=== PATIENT | male | born 2005 | race Caucasian/White ===

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

== ENCOUNTER 2025-02-26 10:57 | Outpatient (AMB) | payer OTHER, SELFPAY ==
--- NOTE | 2025-02-26 11:00 | A.OFFPC_ITS ---
Vital Signs 02/26/25 11:04 Height 5 ft 5.35 in Weight 149 lb BMI 24.5 BP 122/78 Blood Pressure Location Lt brachial Position Sitting Respiration 16 Pulse 66 Pulse Source Pulse Oximeter Temp 98.3 F Temp Source Oral Pulse Oximetry (%) 98 Oxygen Delivery Method Room Air Intake Visit Reasons: establish care J2Ee Engineer Required: No Accompanied by: Self / Same As Patient Allergies No Known Allergies Allergy (Verified 02/26/25 11:17) Medication List - Last Reconciled 02/26/25 by MUNIR Jorge No Known Home Meds Tobacco use date assessed: 02/26/25 Dental Screening Dental Screen Date: 02/26/25 Did you have a dental visit in the last 12 months?: Yes Did you have a dental problem in the last 6 months where you did not have access to dental care?: No Was dental information given to patient?: Patient has dentist HPI establish care HPI Details Patient is a 19 year old male presenting to establish care Previous PCP:[facility] Last visit: Reports that he has not been to the doctor in the while Last PE: Reports that he does not remember the last time he had a physical Specialist: no OBGYN:n/a Past medical history: right hip fx about 6 years ago, in eight grade while playing football, Epistaxis-last time couple months ago. Anxiety and Depression, has not seen anyone for a year or two, but has been doing fairly well Medications: none Family HX:reports that he cannot remember anything Problem: Reports that he has this establishing care today and has no concerns [facility] Medical History (Updated 02/26/25 @ 11:48 by MUNIR Jorge) Anxiety Closed right hip fracture Depression Surgical History No pertinent past surgical history Family History Mother No problems noted. Family/Other Mental health disorder Social History Household Members: Family Housing: House Alcohol intake: never Patient Tobacco Use Status: Never used Tobacco e-Cigarette/Vaping Use: Never Used Second Hand Smoke Exposure: No service: No Current occupational status: employed Current occupational exposures/hazards: No Cognitive needs: No Hearing needs: No Vision needs: Yes Questionnaire PHQ-9 Over the last 2 weeks, how often have you been bothered by any of the following problems? 1. Little interest or pleasure in doing things: not at all 2. Feeling down, depressed, or hopeless: not at all 3. Trouble falling or staying asleep, or sleeping too much: more than half the days 4. Feeling tired or having little energy: not at all 5. Poor appetite or overeating: not at all 6. Feeling bad about yourself - or that you are a failure or have let yourself or your family down: more than half the days 7. Trouble concentrating on things, such as reading the newspaper or watching television: not at all 8. Moving or speaking so slowly that other people could have noticed. Or the opposite - being so fidgety or restless that you have been moving around a lot more than usual: not at all 9. Thoughts that you would be better off or of hurting yourself in some way: not at all Total score: 4 Depression Screening Interpretation: Negative Depression Screening Done: Yes 55659 - PHQ-9 Billing: Yes Source: Developed by Drs. Anthony Trinh, Adriana Gomez, Shahab Moreno and colleagues, with an educational denny from [employer]. Thrive Questionnaire Date Thrive assessed: 02/26/25 I am a: Patient What is your living situation today?: I have a steady place to live Within the past 12 months, did the food you bought not last and you didn't have the money to get more?: Never true Within the past 12 months, did you worry whether your food would run out before you got money to buy more?: Never true Do you have trouble paying for medicines?: No Do you have trouble getting transportation to medical appointments?: No Do you have trouble paying your heating and electricity bill?: No Do you have trouble taking care of your child, family member or friend?: No Do you have trouble with day-to-day activities such as bathing, preparing meals, shopping, managing finances, etc.?: No Are you currently unemployed and looking for a job?: No Are you interested in more education?: No Please select the resources that you would like help with: None Currently or been in a relationship where the following occur: No concerns reported THRIVE Score: 0 AUDIT C Alcohol Use Questionnaire (AUDIT-C) 1. How often do you have a drink containing alcohol?: Never Total Score: 0 TOMI-7 AMB Questionnaire TOMI-7 Date TOMI - 7 assessed: 02/26/25 Feeling nervous, anxious, or on edge: 0 = Not at all Not being able to stop or control worryin = Not at all Worrying too much about different things: 0 = Not at all Trouble relaxin = Not at all Being so restless that it is hard to sit still: 0 = Not at all Becoming easily annoyed or irritable: 0 = Not at all Feeling afraid as if something awful might happen: 0 = Not at all Total TOMI-7 score (0-4 normal; 5-9 mild; 10-14 moderate; 15-21 severe): 0 Source: Developed by Drs. Anthony Trinh, Adriana Gomez, Shahab Moreno and colleagues, with an educational denny from [employer]. TOMI-7 Assessment Billing TOMI-7 Assessment Tool: TOMI-7 Assessment 15447 Review of Systems Const Denies headache(s) Eyes Denies loss of vision ENT Denies vertigo, Denies dizziness, Denies headache(s), Reports epistaxis (Intermittent) and Denies sore throat Card Reports chest pain (comes and goes in seconds), Denies leg edema and Denies lightheadedness Resp Denies cough, Denies hemoptysis and Denies wheezing GI Denies abdominal pain, Denies melena, Denies constipation, Denies diarrhea and Denies vomiting Denies dysuria, Denies urinary frequency and Denies urinary urgency Musc Denies arthralgias, Denies joint swelling, Denies numbness and Denies tingling Neuro Denies Abnormal speech present, Denies behavioral changes, Denies vertigo, De nies dizziness, Denies headache(s), Denies loss of vision, Denies memory loss, Denies numbness and Denies tingling Psych Denies anxiety, Denies behavioral changes, Denies depression, Denies memory loss and Denies panic attacks Mateo/Lymph Denies easy bleeding and Denies easy bruising Aller/Immun Denies wheezing Physical exam (Primary Care) Vital Signs: Last Vital Signs Temp 98.3 F 02/26/25 11:04 Pulse 66 02/26/25 11:04 Resp 16 02/26/25 11:04 BP 122/78 02/26/25 11:04 Pulse Ox 98 02/26/25 11:04 Oxygen Delivery Method Room Air 02/26/25 11:04 BMI result Body Mass Index 24.5 Tobacco/Smoking Status: Tobacco use Status Tobacco use date assessed 02/26/25 02/26/25 11:09 Patient Tobacco Use Status Never used Tobacco 02/26/25 11:09 e-Cigarette/Vaping Use Never Used 02/26/25 11:09 PHQ-9: PHQ-9 Score PHQ-9: Total score 4 02/26/25 11:29 Depression Screening Interpretation: Negative Thrive Assessment: Date of Thrive Assessment Date Thrive assessed 02/26/25 02/26/25 11:03 Currently or been in a relationship where the following occur: No concerns reported Const General: healthy appearing, no acute distress, alert and awake Nutritional Appearance: well nourished Orientation/consciousness: oriented to person, oriented to place and oriented to time HENMT Ears: TM's normal bilaterally General nose exam: Normal nasal mucous membranes and turbinates present Eyes Conjunctivae: conjunctivae normal Sclerae: sclerae normal Pupils: Equal, round and reactive pupils present Neck Neck: Yes no lymphadenopathy and Yes no JVD Thyroid: Thyroid normal Carotids: no bruits Resp Effort & Inspection: normal respiratory effort and not tachypneic Auscultation: no crackles, no rales, no rhonchi and no wheezes Cardio Rate: regular rate Rhythm: regular rhythm Heart sounds: S1 normal heart sound present, S2 normal heart sound present, no murmurs and normal S1 and S2 GI Palpation (GI): Soft to palpation, nontender, no hepatomegaly and no splenomegaly Auscultation: normal bowel sounds Skin General skin exam: no rashes or lesions noted and dry skin Neuro General: oriented to person, oriented to place and oriented to time Cranial nerves: Yes Equal, round and reactive pupils present Speech: No Abnormal speech present Gait exam (Neuro): Normal gait present Motor exam (neuro): no tremor noted Extrem Right upper extremity: full ROM Left upper extremity: full ROM Right lower extremity: full ROM; no edema Left lower extremity: full ROM; no edema Psych Mental Status: mental status grossly normal Speech and movement: Normal speech and movement present Affect: normal affect Attitude: cooperative Thought process: Normal thought process present Coding Level of Care Code New Pt Level 3 (95323) Diagnoses Chest pain, unspecified type R07.9 Chest pain type: unspecified Depression, unspecified depression type F32.A Depression Type: unspecified Anxiety F41.9 Epistaxis R04.0 Additional Codes PHQ-9 - 89256 - PHQ-9 Billing: Yes ([id number]) TOMI-7 Assessment Billing - TOMI-7 Assessment Tool: TOMI-7 Assessment 44605 ([id number]) Time Spent (min) 37 Assessment & Plan Assessment & Plan (1) Chest pain, unspecified: Code(s): R07.9 - Chest pain, unspecified Category: Medical Qualifiers: Chest pain type: unspecified Qualified Code(s): R07.9 - Chest pain, unspecified Plan: Reports that the chest pains that comes and goes away in secs, primarily when he is at school and is stressed out Encouraged the patient to work on stress management (2) Depression: Comment: Follows with a therapist and psychiatrist through [facility] with Mary. 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 and love of animals; he is UTD with routine well care except for need of dental cleaning Code(s): F32.A - Depression, unspecified Category: Medical Qualifiers: Depression Type: unspecified Qualified Code(s): F32.A - Depression, unspecified Plan: The patient is currently not on any medication and he is not being followed by any therapist /psychiatrist Encouraged CBT, especially now that he is dealing with a lot of stress at school (3) Anxiety: Code(s): F41.9 - Anxiety disorder, unspecified Category: Medical Plan: Encouraged CBT Patient thinks that he has his anxiety controlled fairly without any treatments Denies any SI/HI We will continue to monitor (4) Epistaxis: Code(s): R04.0 - Epistaxis Category: Medical Plan: Recurrent, last episode was couple of months ago Encouraged the patient to use Afrin nose spray and to lean forward in use cold compress during the episodes Also, keep your nasal passages moisturized to help prevent these episodes Plan Patient to return in 7 weeks for physical and labs reviewed Orders: Orders Complete Blood Count Auto Diff 03/02/25 Z76.89 - Persons encountering health services in other specified circumstances, R07.9 - Chest pain, unspecified Comprehensive [place]. Panel Fast 03/02/25 Z76.89 - Persons encountering health services in other specified circumstances, R07.9 - Chest pain, unspecified Lipid Panel 03/02/25 Z76.89 - Persons encountering health services in other specified circumstances, R07.9 - Chest pain, unspecified CRP High Sensitivity 03/02/25 Z76.89 - Persons encountering health services in other specified circumstances, R07.9 - Chest pain, unspecified Erythrocyte Sedimentation Rate 03/02/25 Z76.89 - Persons encountering health services in other specified circumstances, R07.9 - Chest pain, unspecified TSH reflex Free T4 03/02/25 Z76.89 - Persons encountering health services in other specified circumstances, R07.9 - Chest pain, unspecified UA CC w/rflx Micro + Cult 03/02/25 Z76.89 - Persons encountering health services in other specified circumstances, R07.9 - Chest pain, unspecified
[2025-02-26 11:04] VITALS: BP 122/78; PULSE 66; RESP 16; TEMP 36.8; O2SAT 98; BMI 24.5
== END 2025-02-26 11:45 | disposition home or self-care (01) ==
DX: R07.9 Chest pain, unspecified (principal); F32.A Depression, unspecified; F41.9 Anxiety disorder, unspecified

== ENCOUNTER → 2025-02-26 10:57 | Outpatient (BNVA) | payer SELFPAY | DX: R07.9 Chest pain, unspecified (principal); F41.9 Anxiety disorder, unspecified; F32.A Depression, unspecified; R04.0 Epistaxis; Z76.89 Persons encountering health services in other specified circumstances | CPT/HCPCS: 96127 ==

== ENCOUNTER 2025-03-02 09:22 | Outpatient (REF) | payer OTHER, SELFPAY ==
[2025-03-02 09:37] LABS: MANUAL DIFF FLAG NO
[2025-03-02 10:06] LABS: Hematocrit 44.6 % (42.0-52.0); Hemoglobin 15.3 g/dl (14.0-18.0); Imm Gran Abs Auto 0.02 X10*3/uL (0.00-0.03); Imm Gran Pct Auto 0.4 % (0.0-0.4); Lymphocytes Absolute Auto 1.5 X10*3/uL (1.2-4.9); Mean Corpuscular HGB Conc 34.3 g/dl (31.0-36.0); Mean Corpuscular Hemoglobin 32.9 pg (27.0-33.0); Mean Corpuscular Volume 95.9 fL (80.0-98.0); NRBC Abs Auto 0.000 X10*3/uL (0.0-0.012); NRBC Pct Auto 0.0 /100WBC (0.0-0.2); Platelet Count 193 X10*3/uL (160-400); Red Blood Count 4.65 X10*6/uL (4.60-5.80); White Blood Count 5.5 X10*3/uL (4.8-10.8)
[2025-03-02 10:28] LABS: Appearance Urine Clear; Glucose Urine UA Negative (Negative); PH 6.5 (5.0-9.0); Specific Gravity - Urine 1.020 (1.005-1.025)
[2025-03-02 11:13] LABS: Alanine Aminotransferase 17 U/L (0-40); Albumin Level 4.8 g/dL (3.5-5.0); Alkaline Phosphatase 74 U/L (39-117); Anion Gap 9 (12-20); Aspartate Amino Transferase 21 U/L (5-37); Blood Urea Nitrogen 12 mg/dL (9-16); Calcium 9.4 mg/dL (8.4-10.2); Carbon Dioxide 28 mmol/L (22-29); Chloride 105 mmol/L (96-108); Cholesterol 173 mg/dL (<200); Estimated Glomerular Filt Rate > 60; HDL Cholesterol 65 mg/dL (>40); Potassium 4.4 mmol/L (3.3-5.1); Sodium 138 mmol/L (135-145); Total Protein 7.7 g/dL (6.5-8.0); Triglycerides 86 mg/dL (<150)
== END 2025-03-02 09:23 | disposition home or self-care (01) ==
LOC: HO.LAB 09:22
DX: R07.9 Chest pain, unspecified (principal); Z76.89 Persons encountering health services in other specified circumstances
CPT/HCPCS: 36415; 80053; 80061; 81003; 84443; 85025; 85652; 86141

== ENCOUNTER 2025-04-16 15:58 | Outpatient (AMB) | payer OTHER, SELFPAY ==
[2025-04-16 16:02] VITALS: BP 130/88; PULSE 51; RESP 18; TEMP 35.7; O2SAT 98; BMI 25.1
--- NOTE | 2025-04-16 16:02 | A.OFFPC_ITS ---
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 Accompanied by: Self / Same As Patient Allergies No Known Allergies Allergy (Verified 04/16/25 16:14) Medication List - Last Reconciled 04/16/25 by MUNIR Jorge No Known Home Meds Tobacco use date assessed: 04/16/25 Dental Screening Dental Screen Date: 04/16/25 Did you have a dental visit in the last 12 months?: Yes Did you have a dental problem in the last 6 months where you did not have access to dental care?: No Was dental information given to patient?: Patient has dentist HPI annual/lab review HPI Details The patient is 19 year old male presenting for annual physical Dentist: up to date Eye: up to date Snellen: Right: Left: Corrected vision: yes-glasses STI screening: Colonoscopy: Pap Smer: PHQ-9: Flu: not in awhile COVID: x2 Tdap: He not sure Diet: regular Exercise: works out every day [facility] Medical History Anxiety Closed right hip fracture Depression Surgical History No pertinent past surgical history Family History Mother No problems noted. Family/Other Mental health disorder Social History Household Members: Family Housing: House Alcohol intake: never Patient Tobacco Use Status: Never used Tobacco e-Cigarette/Vaping Use: Never Used Second Hand Smoke Exposure: No service: No Current occupational status: employed Current occupational exposures/hazards: No Cognitive needs: No Hearing needs: No Vision needs: Yes Questionnaire PHQ-9 Over the last 2 weeks, how often have you been bothered by any of the following problems? 1. Little interest or pleasure in doing things: not at all 2. Feeling down, depressed, or hopeless: not at all 3. Trouble falling or staying asleep, or sleeping too much: more than half the days 4. Feeling tired or having little energy: not at all 5. Poor appetite or overeating: not at all 6. Feeling bad about yourself - or that you are a failure or have let yourself or your family down: more than half the days 7. Trouble concentrating on things, such as reading the newspaper or watching television: not at all 8. Moving or speaking so slowly that other people could have noticed. Or the opposite - being so fidgety or restless that you have been moving around a lot more than usual: not at all 9. Thoughts that you would be better off or of hurting yourself in some way: not at all Total score: 4 Depression Screening Interpretation: Negative Depression Screening Done: Yes Source: Developed by Drs. Anthony Trinh, Adriana Gomez, Shahab Moreno and colleagues, with an educational denny from [employer]. Thrive Questionnaire Date Thrive assessed: 04/16/25 I am a: Patient What is your living situation today?: I have a steady place to live Within the past 12 months, did the food you bought not last and you didn't have the money to get more?: Never true Within the past 12 months, did you worry whether your food would run out before you got money to buy more?: Never true Do you have trouble paying for medicines?: No Do you have trouble getting transportation to medical appointments?: No Do you have trouble paying your heating and electricity bill?: No Do you have trouble taking care of your child, family member or friend?: No Do you have trouble with day-to-day activities such as bathing, preparing meals, shopping, managing finances, etc.?: No Are you currently unemployed and looking for a job?: No Are you interested in more education?: No Please select the resources that you would like help with: None Currently or been in a relationship where the following occur: No concerns reported THRIVE Score: 0 AUDIT C Alcohol Use Questionnaire (AUDIT-C) 1. How often do you have a drink containing alcohol?: Never Total Score: 0 TOMI-7 AMB Questionnaire TOMI-7 Date TOMI - 7 assessed: 04/16/25 Feeling nervous, anxious, or on edge: 0 = Not at all Not being able to stop or control worryin = Not at all Worrying too much about different things: 0 = Not at all Trouble relaxin = Not at all Being so restless that it is hard to sit still: 0 = Not at all Becoming easily annoyed or irritable: 0 = Not at all Feeling afraid as if something awful might happen: 0 = Not at all Total TOMI-7 score (0-4 normal; 5-9 mild; 10-14 moderate; 15-21 severe): 0 Source: Developed by Drs. Anthony Trinh, Adriana Gomez, Shahab Moreno and colleagues, with an educational denny from [employer]. Review of Systems Const Denies headache(s) Eyes Denies loss of vision ENT Denies vertigo, Denies dizziness, Denies headache(s), Reports epistaxis (intermittently) and Denies sore throat Card Reports chest pain (comes and goes in seconds), Denies leg edema and Denies lightheadedness Resp Denies cough, Denies hemoptysis and Denies wheezing GI Denies abdominal pain, Denies melena, Denies constipation, Denies diarrhea and Denies vomiting Denies dysuria, Denies urinary frequency and Denies urinary urgency Musc Denies arthralgias, Denies joint swelling, Denies numbness and Denies tingling Neuro Denies Abnormal speech present, Denies behavioral changes, Denies vertigo, Denies dizziness, Denies headache(s), Denies loss of vision, Denies memory loss, Denies numbness and Denies tingling Psych Denies anxiety, Denies behavioral changes, Denies depression, Denies memory loss and Denies panic attacks Mateo/Lymph Denies easy bleeding and Denies easy bruising Aller/Immun Denies wheezing Physical exam (Primary Care) Vital Signs: Last Vital Signs Temp 96.2 F L 04/16/25 16:02 Pulse 51 04/16/25 16:02 Resp 18 04/16/25 16:02 BP 130/88 04/16/25 16:02 Pulse Ox 98 04/16/25 16:02 Oxygen Delivery Method Room Air 04/16/25 16:02 BMI result Body Mass Index 25.1 Tobacco/Smoking Status: Tobacco use Status Tobacco use date assessed 04/16/25 04/16/25 16:11 Patient Tobacco Use Status Never used Tobacco 04/16/25 16:11 e-Cigarette/Vaping Use Never Used 04/16/25 16:11 PHQ-9: PHQ-9 Score PHQ-9: Total score 4 04/16/25 16:16 Depression Screening Interpretation: Negative Thrive Assessment: Date of Thrive Assessment Date Thrive assessed 04/16/25 04/16/25 16:11 Currently or been in a relationship where the following occur: No concerns repor leon Const General: healthy appearing, no acute distress, alert and awake Nutritional Appearance: well nourished Orientation/consciousness: oriented to person, oriented to place and oriented to time HENMT Ears: TM's normal bilaterally General nose exam: Normal nasal mucous membranes and turbinates present Eyes Conjunctivae: conjunctivae normal Sclerae: sclerae normal Pupils: Equal, round and reactive pupils present Neck Neck: Yes no lymphadenopathy and Yes no JVD Thyroid: Thyroid normal Carotids: no bruits Resp Effort & Inspection: normal respiratory effort and not tachypneic Auscultation: no crackles, no rales, no rhonchi and no wheezes Cardio Rate: regular rate Rhythm: regular rhythm Heart sounds: no murmurs and normal S1 and S2 GI Palpation (GI): Soft to palpation, nontender, no hepatomegaly and no splen omegaly Auscultation: normal bowel sounds General: Yes no CVA tenderness Back/Spine/Pelvis Back: no CVA tenderness Thoracic/Lumbar Spine: thoracic and lumbar spine normal to inspection Skin General skin exam: no rashes or lesions noted and dry skin Neuro General: oriented to person, oriented to place and oriented to time Cranial nerves: Yes CN's II-XII intact bilaterally and Yes Equal, round and reactive pupils present Speech: No Abnormal speech present Gait exam (Neuro): Normal gait present Motor exam (neuro): no tremor noted Deep tendon reflexes (DTR's): Right triceps reflex intensity grade: 2+, Left triceps reflex intensity grade: 2+, Rt Biceps (C5, C6): 2+, Left biceps reflex intensity grade: 2+, Right brachioradialis reflex intensity grade: 2+, Left brachioradialis reflex intensity grade: 2+, Right patellar reflex intensity grade: 2+ and Left patellar reflex intensity grade: 2+ Extrem Right upper extremity: full ROM Left upper extremity: full ROM Right lower extremity: full ROM; no edema Left lower extremity: full ROM; no edema Psych Mental Status: mental status grossly normal Speech and movement: Normal speech and movement present Affect: normal affect Attitude: cooperative Thought process: Normal thought process present Results Reviewed Results Reviewed: Laboratory Tests 03/02/25 03/02/25 09:34 09:36 WBC 5.5 RBC 4.65 Hgb 15.3 Hct 44.6 MCV 95.9 MCH 32.9 MCHC 34.3 RDW 11.9 Plt Count 193 MPV 12.2 Sodium 138 Potassium 4.4 Chloride 105 Carbon Dioxide 28 Anion Gap 9 L BUN 12 Creatinine 0.97 Estim Creat Clear Calc Not Reportable Estimated GFR > 60 Fasting Glucose 85 Calcium 9.4 Total Bilirubin 3.9 H AST 21 ALT 17 Alkaline Phosphatase 74 C-React Prot High Sens 0.2 Total Protein 7.7 Albumin 4.8 Triglycerides 86 Cholesterol 173 LDL Cholesterol, Calc 91 HDL Cholesterol 65 TSH 1.29 Urine Color Yellow Urine Appearance Clear Urine pH 6.5 Ur Specific [place] 1.020 Urine Protein Negative Urine Glucose (UA) Negative Urine Ketones Negative Urine Blood Negative Urine Nitrite Negative Ur Leukocyte Esterase Negative Coding Level of Care Code Est Pt Prev Care [id number]) Diagnoses Annual physical exam Z00.00 Chest pain, unspecified type R07.9 Chest pain type: unspecified Depression, unspecified depression type F32.A Depression Type: unspecified Anxiety F41.9 Epistaxis R04.0 Gilbert syndrome E80.4 Time Spent (min) 35 Assessment & Plan Assessment & Plan (1) Annual physical exam: Code(s): Z00.00 - Encounter for general adult medical examination without abnormal findings Category: Medical Plan: Preventative guidelines and recent labs reviewed with the patient. (2) Chest pain, unspecified: Code(s): R07.9 - Chest pain, unspecified Category: Medical Qualifiers: Chest pain type: unspecified Qualified Code(s): R07.9 - Chest pain, unspecified Plan: Reports that the chest pains that comes and goes away in secs, primarily when he is at school and is stressed out Encouraged the patient to work on stress management (3) Depression: Comment: Follows with a therapist and psychiatrist through [facility] with Mary. Takes escitalopram 20 mg daily by [employer]acey [employer] Johnathan Andrade whom Kale does [employer] for [employer]; Kale needs to discuss with Mary if he counseling with continue at the [facility] post graduation. 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 and love of animals; he is UTD with routine well care except for need of dental cleaning Code(s): F32.A - Depression, unspecified Category: Medical Qualifiers: Depression Type: unspecified Qualified Code(s): F32.A - Depression, unspecified Plan: The patient is currently not on any medication and he is not being followed by any therapist /psychiatrist Encouraged CBT, especially now that he is dealing with a lot of stress at school (4) Anxiety: Code(s): F41.9 - Anxiety disorder, unspecified Category: Medical Plan: Encouraged CBT Patient thinks that he has his anxiety controlled fairly without any treatments Denies any SI/HI We will continue to monitor (5) Epistaxis: Code(s): R04.0 - Epistaxis Category: Medical Plan: Recurrent, last episode was couple of months ago Encouraged the patient to use Afrin nose spray and to lean forward in use cold compress during the episodes Also, keep your nasal passages moisturized to help prevent these episodes (6) Gilbert syndrome: Code(s): E80.4 - Gilbert syndrome Category: Medical Plan: Total bilirubin 3.9 with normal CBC and CMP otherwise. Discussed with the patient this most like gilbert syndrome. Will continue to monitor
== END 2025-04-16 16:37 | disposition home or self-care (01) ==
LOC: HO.HMCH 15:58
DX: Z00.00 Encounter for general adult medical examination without abnormal findings (principal); R07.9 Chest pain, unspecified; F32.A Depression, unspecified; F41.9 Anxiety disorder, unspecified; R04.0 Epistaxis; E80.4 Gilbert syndrome